=== PATIENT | male | born 1945 | race Hispanic/Latino ===

== ENCOUNTER 2017-06-08 19:18 | Inpatient (IN) | payer MEDICARE, OTHER ==
[2017-06-08 20:58] LABS: #Eosinphils 0.1 thou/uL (0.0-0.7); #Monocytes 0.8 thou/uL (0.11-0.59); #Neutrophils 6.5 thou/uL (1.40-6.50); %Basophils 0.3 % (0.0-1.0); %Eosinophils 0.8 % (0.0-10.0); %Lymphocytes 11.4 % (21.0-51.0); %Monocytes 10.1 % (0.0-10.0); %Neutrophils 77.4 % (42.0-75.0); Hemoglobin 15.6 g/dL (14.0-18.0); Mean Corpuscular HGB CONC 34.2 g/dL (32.0-36.0); Mean Corpuscular Volume 96.4 fl (80.0-94.0); Mean Platelet Volume 8.2 fL (7.4-10.4); Platelet Count 281 thou/uL (130-400); RBC Distribution Width 13.4 % (11.5-14.5); Red Blood Cell (RBC) Count 4.74 mill/uL (4.70-6.10); White Blood Cell (WBC) Count 8.3 thou/uL (4.8-10.8)
[2017-06-08 21:16] LABS: ALT (SGPT) 22 U/L (8-55); AST (SGOT) 25 U/L (5-34); Albumin 4.8 g/dL (3.4-4.8); Alkaline Phosphatase 60 U/L (40-150); Anion Gap 16 mmol/L (10-20); BUN (Urea Nitrogen) 10 mg/dL (8.4-25.7); Bilirubin, Total 1.5 mg/dL (0.2-1.2); Calc. Creatinine Clearance 0 mL/min (70-130); Calcium 10.5 mg/dL (7.8-10.44); Carbon Dioxide 24 mmol/L (23-31); Chloride 107 mmol/L (98-107); Estimated GFR-MDRD Greater than 90; Globulin 2.9 g/dL (2.4-3.5); Glucose 116 mg/dL (80-115); Potassium 4.2 mmol/L (3.5-5.1); Protein, Total 7.7 g/dL (5.8-8.1); Sodium 143 mmol/L (136-145)
[2017-06-08 21:38] LABS: CKMB 3.9 ng/mL (0-6.6); Troponin I 0.022 ng/mL (< 0.028)
[2017-06-08 21:45] LABS: Magnesium 2.3 mg/dL (1.6-2.6)
[2017-06-08] MEDS ORDERED: methylPREDNISolone Sod Succ/PF 125 MG/2 ML VIAL ONE (22:43)
[2017-06-09 03:32] VITALS: BMI 26.9
[2017-06-09] MEDS ORDERED: Ondansetron ODT 4 MG TAB SL PRN (03:33)
[2017-06-09] MEDS ORDERED: Ondansetron HCl/PF 4 MG/2 ML Vial IVP PRN ×2 (03:33→10:19)
[2017-06-09] MEDS ORDERED: Sodium Chloride 0.45% 1,000 ML IV SCH (03:45)
[2017-06-09] MEDS: predniSONE 20 MG TAB PO SCH ×2 (08:53→17:31)
[2017-06-09] MEDS ORDERED: Prevnar 13-Val Conj/PF 0.5 ML SYRINGE IM ONE (09:00)
[2017-06-09] MEDS ORDERED: FLU VACC TS2017-18 (>65YR) 0.5 ML SYRINGE IM ONE (09:00)
[2017-06-09] MEDS ORDERED: Senokot 8.6 MG TAB PO PRN (10:19)
[2017-06-09] MEDS ORDERED: Acetaminophen 325 MG TAB PO PRN (10:19)
[2017-06-09] MEDS ORDERED: Ondansetron ODT 4 MG TAB PO PRN (10:19)
[2017-06-09] MEDS ORDERED: hydrALAZINE 20 MG/ML VIAL SLOW IVP PRN (10:19)
[2017-06-09] MEDS ORDERED: azaTHIOprine 50 MG TAB PO SCH (11:00)
--- NOTE | 2017-06-09 14:55 | PDOC.EVN ---
Event Note - Event Note Event Note: Patient seen and examined. Note dictated. Full code. DPOA - self/family
--- NOTE | 2017-06-09 15:09 | HP ---
DATE OF ADMISSION: 06/09/2017 PRIMARY CARE PHYSICIAN: The patient is from out [facility]. REASON FOR ADMISSION/CHIEF COMPLAINT: Generalized weakness. HISTORY OF PRESENT ILLNESS: Patient is a 72-year-old male with myasthenia gravis, currently on azath ioprine presented to the emergency room with above complaints. Patient used to be on prednisone chris g with azathioprine in the past. Seven months ago, he discontinued prednisone. Over the last 2 days , he has also missed his azathioprine. Patient claims to have a lot of stress lately. Over the last five days, patient developed gradual worsening weakness that was generalized. He started using a ca ne since he was unable to walk. Over the last 2-3 days, he has fallen 3 times. His last fall was ye . He had generalized muscle weakness and had difficulty holding things. No double vision, bl urring of vision, facial asymmetry or focal weakness reported. No headache or seizures reported. No chest pain, palpitations, fever or chills reported. In the emergency room, initial vital signs showed temperature 98.1, respirations 18, pulse 89, blood pressure 188/103 with O2 saturation 97% on room air. He received 125 mg of Solu-Medrol for possible mild myasthenia flare. His EKG showed sinus rhythm without significant ST-T wave changes. PAST MEDICAL HISTORY: Myasthenia gravis, currently on immunosuppression. PAST SURGICAL HISTORY: 1. Gastric surgery, details are unavailable. 2. Cholecystectomy. ALLERGIES: No known drug allergies. CURRENT HOME MEDICATION: Azathioprine 50 mg b.i.d. SOCIAL HISTORY: He drinks 2-3 drinks of wine on a daily basis. No smoking or drug use. FAMILY HISTORY: Negative for premature coronary artery disease. REVIEW OF SYSTEMS: The following complete review of systems was negative, unless otherwise mentioned in the HPI or below: Constitutional: Weight loss or gain, ability to conduct usual activities. Skin: Rash, itching. Eyes: Double vision, pain. ENT/Mouth: Nose bleeding, neck stiffness, pain, tenderness. Cardiovascular: Palpitations, dyspnea on exertion, orthopnea. Respiratory: Shortness of breath, wheezing, cough, hemoptysis, fever or night sweats. Gastrointestinal: Poor appetite, abdominal pain, heartburn, nausea, vomiting, constipation, or diarr hea. Genitourinary: Urgency, frequency, dysuria, nocturia. Musculoskeletal: Pain, swelling. Neurologic/Psychiatric: Anxiety, depression. Allergy/Immunologic: Skin rash, bleeding tendency. PHYSICAL EXAMINATION: GENERAL: A 72-year-old male in no apparent distress. Feels symptomatically better after IV steroids in the emergency room. HEENT: Head is atraumatic, normocephalic. Sclerae anicteric. Moist mucous membranes. No oral lesi on. NECK: Supple, no JVD appreciated. No carotid bruit. LUNGS: Clear to auscultation bilaterally. No wheezing or rales. HEART: S1 and S2 present. Regular rate and rhythm. No murmurs, rubs or gallops appreciated. ABDOMEN: Soft, nontender, bowel sounds present. EXTREMITIES: No edema or calf tenderness. NEUROLOGIC: There is generalized weakness. Power was 5/5 in all extremities. There is a delay in h is weakness. Cranial nerves were normal. Sensation to touch was normal bilaterally. PSYCHIATRY: Alert, awake, oriented x3. SKIN: Warm and dry. LYMPH NODES: No palpable lymph nodes in the neck. PERIPHERAL VASCULAR: Radial pulses palpable bilaterally. MUSCULOSKELETAL: No joint swelling or tenderness. IMAGING DATA AND LABORATORY DATA: 1. EKG by my review as discussed above. 2. CBC showed WBC 8.3 with hemoglobin 15.6, hematocrit 45.7, and platelet count of 281. 3. Chemistries showed sodium 143, potassium 4.2, chloride 107, bicarbonate 24, BUN of 10, and creati nine 0.69. 4. Influenza testing was negative. IMPRESSION AND PLAN: 1. Generalized weakness, probably secondary to flare of myasthenia gravis. 2. History of myasthenia gravis. 3. Chronic alcoholism. 4. Abnormal liver function tests, probably secondary to alcohol use. 5. Macrocytosis rule out vitamin B12 deficiency. PLAN: The patient will be monitored on the medical floor. We will continue oral steroids at 1 mg/kg . Neurology will be consulted. Thiamine, folic acid, and multivitamins. Resume azathioprine. Rech az labs in a.m. Start him on multivitamins, thiamine and folic acid. We will check vitamin B12 in a.m. We will also get frequent vital capacity and NIF measurements. Plan of care was discussed with the patient in detail. He stated understanding.
[2017-06-09] MEDS: Famotidine 20 MG TAB PO SCH (20:01)
[2017-06-09] MEDS: Docusate 100 MG CAP PO SCH (20:01)
[2017-06-09] MEDS: azaTHIOprine 50 MG TAB PO SCH (20:02)
--- NOTE | 2017-06-09 23:22 | CON ---
DATE OF CONSULTATION: 06/09/2017 CONSULTING PHYSICIAN: Hospitalist Service. IMPRESSION: Myasthenia exacerbation secondary to discontinuation of steroids. PLAN: 1. Continue Imuran 50 mg twice a day. 2. Prednisone 40 mg per day. 3. Mestinon 60 mg q.6 hours. 4. Discharge for outpatient management once his strength is good enough for independent mobility. HISTORY OF PRESENT ILLNESS: Mr. Winston Lee, he is a 72-year-old gentleman who was diagnosed wi th myasthenia gravis when he was living in [place]. He was living in [place] most recently and wa s followed by neurologist until recently. His neurologist has . He had taken Mestinon in the past. He was weaned off of this. He was on steroids which even were gradually weaned down to a bout 12.5 mg per day along with his Imuran. He decided 8 months ago to discontinue prednisone and wa s doing reasonably well until about 3 days ago. He started getting much weaker in his legs and he st arted falling. He also noted weakness in his right arm more so than the left. He has not had any re current double vision or ptosis. He was admitted and started on prednisone. I was called to give a neurologic opinion. He has not had a thymectomy in the past. PAST MEDICAL HISTORY: Otherwise, negative. ALLERGIES: None reported. SOCIAL HISTORY: He is a businessman and continues to live independently. FAMILY HISTORY: Noncontributory. REVIEW OF SYSTEMS: Otherwise, negative. PHYSICAL EXAMINATION: GENERAL: He is a healthy-appearing elderly gentleman in no distress. VITAL SIGNS: Have been stable. He is afebrile. HEENT: Unremarkable. NEUROLOGIC: He is alert and appropriate. Speech is fluent and clear. Cranial nerves are intact oth er than neck flexion weakness. Motor exam showed a 4-/5 of upper extremity strength. His lower extr emities were a bit stronger in the range of 4+/5. Sensation was normal. No abnormal movements were seen. LABORATORY STUDIES: Reviewed. SUMMARY: A 72-year-old gentleman with history of myasthenia who is experiencing a relapse. I would be happy to follow him as an outpatient once we stabilize the situation.
[2017-06-10] MEDS: Pyridostigmine Bromide IR 60 MG TAB PO SCH ×4 (02:24→20:17)
[2017-06-10 04:57] LABS: ALT (SGPT) 16 U/L (8-55); AST (SGOT) 15 U/L (5-34); Albumin 3.9 g/dL (3.4-4.8); Alkaline Phosphatase 54 U/L (40-150); Anion Gap 12 mmol/L (10-20); BUN (Urea Nitrogen) 15 mg/dL (8.4-25.7); Bilirubin, Total 0.6 mg/dL (0.2-1.2); Calc. Creatinine Clearance 110 mL/min (70-130); Calcium 9.4 mg/dL (7.8-10.44); Carbon Dioxide 25 mmol/L (23-31); Chloride 107 mmol/L (98-107); Estimated GFR-MDRD Greater than 90; Globulin 2.4 g/dL (2.4-3.5); Glucose 248 mg/dL (80-115); Potassium 3.6 mmol/L (3.5-5.1); Protein, Total 6.3 g/dL (5.8-8.1); Sodium 140 mmol/L (136-145)
[2017-06-10 06:46] LABS: Folate (Folic Acid) 7.7 ng/mL (7.0-31.4)
[2017-06-10] MEDS: azaTHIOprine 50 MG TAB PO SCH ×2 (08:24→20:17)
[2017-06-10] MEDS: Folic Acid 1 MG TAB PO SCH (08:24)
[2017-06-10] MEDS: Famotidine 20 MG TAB PO SCH ×2 (08:24→20:17)
[2017-06-10] MEDS: Multivit, Therapeutic 1 TAB PO SCH (08:24)
[2017-06-10] MEDS: Docusate 100 MG CAP PO SCH ×2 (08:24→20:17)
[2017-06-10] MEDS: predniSONE 20 MG TAB PO SCH (08:24)
[2017-06-10] MEDS: Calcium Carbonate + Vit D 1 TAB PO SCH (16:38)
--- NOTE | 2017-06-10 18:23 | PDOC.PN ---
- Subjective Encounter Start Date: 06/10/17 Encounter Start Time: 11:00 Patient seen and examined. No new complaints. Overall strength improving. No overnight events. No new focal deficits. - Objective Resuscitation Status: Resuscitation Status FULL:Full Resuscitation MAR Reviewed: Yes Vital Signs & Weight: Vital Signs (12 hours) Temp Pulse Resp BP BP Pulse Ox 06/10/17 16:00 98.3 F 66 16 166/92 H 95 06/10/17 11:33 98.1 F 65 16 164/101 H 95 06/10/17 08:00 97.9 F 76 16 125/67 97 Weight Weight 172 lb 1.6 oz I&O: 06/09/17 06/10/17 06/11/17 06:59 06:59 06:59 Intake Total 705 1240 Output Total 600 Balance 705 640 Result Diagrams: 06/08/17 20:37 06/10/17 03:41 Phys Exam - Physical Examination Constitutional: NAD Respiratory: no wheezing, no rales, no rhonchi Cardiovascular: RRR, no rub Gastrointestinal: soft, non-tender, positive bowel sounds Musculoskeletal: no edema Neurological: non-focal, normal sensation, moves all 4 limbs Power 4-5/5 in all ext Psychiatric: A&O x 3 Dx/Plan - Plan DVT proph w/SCDs IMPRESSION AND PLAN: 1. Myasthenia gravis exacerbation 2. History of myasthenia gravis. 3. Chronic alcoholism. 4. Abnormal liver function tests, probably secondary to alcohol use. 5. Macrocytosis PLAN: * Neuro input appreciated * Change Prednisone to 40 mg daily per Neuro recom. * Cont Imuran and Pyridostigmine * Cont to monitor Review of Systems - Review of Systems Respiratory: negative: Cough, Dry, Shortness of Breath, Hemoptysis, SOB with Excertion, Pleuritic Pain, Sputum, Wheezing Cardiovascular: negative: chest pain, palpitations, orthopnea, paroxysmal nocturnal dyspnea, edema, light headedness - Medications/Allergies Allergies/Adverse Reactions: Allergies Allergy/AdvReac Type Severity Reaction Status Date / Time No Known Allergies Allergy Verified 06/09/17 03:36 Medications: Current Medications Acetaminophen (Tylenol) 650 mg PO Q4H PRN PRN Reason: Headache/Fever or Pain Azathioprine (Imuran) 50 mg PO BID [facility] Last Admin: 06/10/17 08:24 Dose: 50 mg Calcium/Vitamin D (Caltrate 600 + Vit D) 1 tab PO BID-[facility] Last Admin: 06/10/17 16:38 Dose: 1 tab Docusate Sodium (Colace) 100 mg PO BID [facility] Last Admin: 06/10/17 08:24 Dose: 100 mg Famotidine (Pepcid) 20 mg PO BID [facility] Last Admin: 06/10/17 08:24 Dose: 20 mg Folic Acid (Folvite) 1 mg PO DAILY [facility] Last Admin: 06/10/17 08:24 Dose: 1 mg Hydralazine HCl (Apresoline) 10 mg SLOW IVP Q4H PRN PRN Reason: SBP Greater Than 180 Multivitamins (Theragran) 1 tab PO DAILY [facility] Last Admin: 06/10/17 08:24 Dose: 1 tab Ondansetron HCl (Zofran Odt) 4 mg PO Q6H PRN PRN Reason: Nausea/Vomiting Ondansetron HCl (Zofran) 4 mg IVP Q6H PRN PRN Reason: Nausea/Vomiting Prednisone (Prednisone) 40 mg PO QAM-[facility] Last Admin: 06/10/17 08:24 Dose: 40 mg Pyridostigmine [place] (Mestinon) 60 mg PO 0200,0800,1400,2000 [facility] Last Admin: 06/10/17 13:28 Dose: 60 mg Senna (Senokot) 2 tab PO HSPRN PRN PRN Reason: Constipation Thiamine HCl (Thiamine) 100 mg PO DAILY [facility] Last Admin: 06/10/17 08:24 Dose: 100 mg
[2017-06-11] MEDS: Pyridostigmine Bromide IR 60 MG TAB PO SCH ×4 (02:13→19:52)
[2017-06-11 04:33] LABS: #Lymphocytes 1.2 thou/uL (1.20-3.40); #Monocytes 0.5 thou/uL (0.11-0.59); #Neutrophils 6.2 thou/uL (1.40-6.50); %Basophils 0.3 % (0.0-1.0); %Eosinophils 0.2 % (0.0-10.0); %Lymphocytes 15.4 % (21.0-51.0); %Monocytes 6.6 % (0.0-10.0); %Neutrophils 77.4 % (42.0-75.0); Mean Corpuscular HGB CONC 34.5 g/dL (32.0-36.0); Mean Corpuscular Hemoglobin 33.6 pg (27.0-31.0); Mean Corpuscular Volume 97.2 fl (80.0-94.0); Mean Platelet Volume 8.9 fL (7.4-10.4); Platelet Count 226 thou/uL (130-400); RBC Distribution Width 13.7 % (11.5-14.5); Red Blood Cell (RBC) Count 3.88 mill/uL (4.70-6.10)
[2017-06-11] MEDS: azaTHIOprine 50 MG TAB PO SCH ×2 (08:23→19:52)
[2017-06-11] MEDS: predniSONE 20 MG TAB PO SCH (08:23)
[2017-06-11] MEDS: Docusate 100 MG CAP PO SCH ×2 (08:23→19:52)
[2017-06-11] MEDS: Famotidine 20 MG TAB PO SCH ×2 (08:23→19:52)
[2017-06-11] MEDS: Multivit, Therapeutic 1 TAB PO SCH (08:23)
[2017-06-11] MEDS: Calcium Carbonate + Vit D 1 TAB PO SCH ×2 (08:23→16:47)
[2017-06-11] MEDS: Folic Acid 1 MG TAB PO SCH (08:23)
--- NOTE | 2017-06-11 14:00 | PDOC.PN ---
- Subjective Encounter Start Date: 06/11/17 Encounter Start Time: 13:00 Patient seen and examined. No new complaints. No overnight events. No new focal weakness. Still has some gen weakness. - Objective Resuscitation Status: Resuscitation Status FULL:Full Resuscitation MAR Reviewed: Yes Vital Signs & Weight: Vital Signs (12 hours) Temp Pulse Resp BP Pulse Ox 06/11/17 08:00 97.7 F 57 L 16 06/11/17 07:28 97.7 F 57 L 16 151/81 H 96 06/11/17 03:50 97.8 F 53 L 16 168/82 H 96 Weight Weight 172 lb 1.6 oz I&O: 06/10/17 06/11/17 06/12/17 06:59 06:59 06:59 Intake Total 1240 Output Total 600 Balance 640 Result Diagrams: 06/11/17 03:26 06/10/17 03:41 Phys Exam - Physical Examination Constitutional: NAD Cardiovascular: RRR, no rub Gastrointestinal: soft, non-tender, positive bowel sounds Musculoskeletal: no edema Neurological: non-focal, moves all 4 limbs Psychiatric: A&O x 3 Dx/Plan - Plan PT/OT, DVT proph w/SCDs IMPRESSION AND PLAN: 1. Myasthenia gravis exacerbation - improving 2. History of myasthenia gravis. 3. Chronic alcoholism. 4. Abnormal liver function tests, probably secondary to alcohol use. 5. Macrocytosis PLAN: * Cont Prednisone at 40 mg daily per Neuro recom. * Cont Imuran and Pyridostigmine * Cont to monitor * Check HbA1c * Patient still feels gen weak and does not feel comfortable going home - Also is at high risk of falls - Will probably dc in AM if stable * cont PT Review of Systems - Review of Systems Respiratory: negative: Cough, Dry, Shortness of Breath, Hemoptysis, SOB with Excertion, Pleuritic Pain, Sputum, Wheezing Cardiovascular: negative: chest pain, palpitations, orthopnea, paroxysmal nocturnal dyspnea, edema, light headedness - Medications/Allergies Allergies/Adverse Reactions: Allergies Allergy/AdvReac Type Severity Reaction Status Date / Time No Known Allergies Allergy Verified 06/09/17 03:36 Medications: Current Medications Acetaminophen (Tylenol) 650 mg PO Q4H PRN PRN Reason: Headache/Fever or Pain Azathioprine (Imuran) 50 mg PO BID [facility] Last Admin: 06/11/17 08:23 Dose: 50 mg Calcium/Vitamin D (Caltrate 600 + Vit D) 1 tab PO BID-[facility] Last Admin: 06/11/17 08:23 Dose: 1 tab Cyanocobalamin (Vitamin B-12) 1,000 mcg PO DAILY [facility] Docusate Sodium (Colace) 100 mg PO BID [facility] Last Admin: 06/11/17 08:23 Dose: 100 mg Famotidine (Pepcid) 20 mg PO BID [facility] Last Admin: 06/11/17 08:23 Dose: 20 mg Folic Acid (Folvite) 1 mg PO DAILY [facility] Last Admin: 06/11/17 08:23 Dose: 1 mg Hydralazine HCl (Apresoline) 10 mg SLOW IVP Q4H PRN PRN Reason: SBP Greater Than 180 Multivitamins (Theragran) 1 tab PO DAILY [facility] Last Admin: 06/11/17 08:23 Dose: 1 tab Ondansetron HCl (Zofran Odt) 4 mg PO Q6H PRN PRN Reason: Nausea/Vomiting Ondansetron HCl (Zofran) 4 mg IVP Q6H PRN PRN Reason: Nausea/Vomiting Prednisone (Prednisone) 40 mg PO QAM-[facility] Last Admin: 06/11/17 08:23 Dose: 40 mg Pyridostigmine [place] (Mestinon) 60 mg PO 0200,0800,1400,2000 [facility] Last Admin: 06/11/17 13:41 Dose: 60 mg Senna (Senokot) 2 tab PO HSPRN PRN PRN Reason: Constipation Thiamine HCl (Thiamine) 100 mg PO DAILY [facility] Last Admin: 06/11/17 08:23 Dose: 100 mg
[2017-06-11 14:10] LABS: Hemoglobin A1c 5.2 % (4.0-6.0)
[2017-06-12 00:40] VITALS: TEMP 98
[2017-06-12] MEDS: Pyridostigmine Bromide IR 60 MG TAB PO SCH ×2 (02:34→08:01)
[2017-06-12] MEDS: Folic Acid 1 MG TAB PO SCH ×2 (07:59→08:00)
[2017-06-12] MEDS: Calcium Carbonate + Vit D 1 TAB PO SCH (08:02)
[2017-06-12] MEDS: predniSONE 20 MG TAB PO SCH (08:02)
[2017-06-12] MEDS: Famotidine 20 MG TAB PO SCH (08:02)
[2017-06-12] MEDS: azaTHIOprine 50 MG TAB PO SCH (08:02)
[2017-06-12] MEDS: Multivit, Therapeutic 1 TAB PO SCH (08:02)
[2017-06-12] MEDS: Docusate 100 MG CAP PO SCH (08:02)
[2017-06-12 08:08] VITALS: BP 180/72
[2017-06-12] MEDS ORDERED: Cyanocobalamin (Vitamin B-12) 1,000 MCG TAB PO SCH (09:00)
--- NOTE | 2017-06-12 11:14 | PDOC.PN ---
- Subjective Encounter Start Date: 06/12/17 Encounter Start Time: 07:00 -: old records requested/rev Patient seen and examined. No new complaints. No overnight events - Objective Resuscitation Status: Resuscitation Status FULL:Full Resuscitation MAR Reviewed: Yes Vital Signs & Weight: Vital Signs (12 hours) Temp Pulse Resp BP Pulse Ox 06/12/17 08:00 98.0 F 60 16 180/72 H 98 06/12/17 07:53 98.0 F 60 16 196/96 H 98 06/12/17 00:39 98.0 F 55 L 20 164/79 H 98 Weight Weight 172 lb 1.6 oz Result Diagrams: 06/11/17 03:26 06/10/17 03:41 Additional Labs: Accuchecks 06/11/17 20:28 POC Glucose 192 H Phys Exam - Physical Examination Constitutional: NAD HEENT: PERRLA, moist MMs, sclera anicteric Neck: no JVD, supple Respiratory: no wheezing, no rales, no rhonchi Cardiovascular: RRR, no significant murmur, no rub Gastrointestinal: soft, non-tender, no distention, positive bowel sounds Musculoskeletal: no edema, pulses present Neurological: non-focal, normal sensation, moves all 4 limbs Psychiatric: normal affect, A&O x 3 Skin: no rash, normal turgor Dx/Plan (1) Myasthenia gravis with exacerbation Code(s): G70.01 - MYASTHENIA GRAVIS WITH (ACUTE) EXACERBATION Status: Acute (2) Abnormal LFTs Code(s): R79.89 - OTHER SPECIFIED ABNORMAL FINDINGS OF BLOOD CHEMISTRY Status : Chronic (3) Alcoholism Code(s): F10.20 - ALCOHOL DEPENDENCE, UNCOMPLICATED Status: Chronic (4) Macrocytosis Code(s): D75.89 - OTHER SPECIFIED DISEASES OF BLOOD AND BLOOD-FORMING ORGANS Status: Chronic - Plan cont current plan of care * medication reviewed as below * symptomatic treatment. * see discharge summery * add amlodipine Review of Systems - Review of Systems ENT: negative: Ear Pain, Ear Discharge, Nose Pain, Nose Discharge, Nose Congestion, Mouth Pain, Mouth Swelling, Throat Pain, Throat Swelling, Other Respiratory: negative: Cough, Dry, Shortness of Breath, Hemoptysis, SOB with Excertion, Pleuritic Pain, Sputum, Wheezing Cardiovascular: negative: chest pain, palpitations, orthopnea, paroxysmal nocturnal dyspnea, edema, light headedness, other Gastrointestinal: negative: Nausea, Vomiting, Abdominal Pain, Diarrhea, Constipation, Melena, Hematochezia, Other Genitourinary: negative: Dysuria, Frequency, Incontinence, Hematuria, Retention , Other Musculoskeletal: negative: Neck Pain, Shoulder Pain, Arm Pain, Back Pain, Hand Pain, Leg Pain, Foot Pain, Other Skin: negative: Rash, Lesions, Maximilian, Bruising, Other - Medications/Allergies Allergies/Adverse Reactions: Allergies Allergy/AdvReac Type Severity Reaction Status Date / Time No Known Allergies Allergy Verified 06/09/17 03:36 Medications: Current Medications Acetaminophen (Tylenol) 650 mg PO Q4H PRN PRN Reason: Headache/Fever or Pain Amlodipine Besylate (Norvasc) 10 mg PO [facility] Azathioprine (Imuran) 50 mg PO BID [facility] Last Admin: 06/12/17 08:02 Dose: 50 mg Calcium/Vitamin D (Caltrate 600 + Vit D) 1 tab PO BID-[facility] Last Admin: 06/12/17 08:02 Dose: 1 tab Cyanocobalamin (Vitamin B-12) 1,000 mcg PO DAILY [facility] Last Admin: 06/12/17 08:02 Dose: 1,000 mcg Docusate Sodium (Colace) 100 mg PO BID [facility] Last Admin: 06/12/17 08:02 Dose: 100 mg Famotidine (Pepcid) 20 mg PO BID [facility] Last Admin: 06/12/17 08:02 Dose: 20 mg Folic Acid (Folvite) 1 mg PO DAILY [facility] Last Admin: 06/12/17 08:00 Dose: 1 mg Hydralazine HCl (Apresoline) 10 mg SLOW IVP Q4H PRN PRN Reason: SBP Greater Than 180 Multivitamins (Theragran) 1 tab PO DAILY [facility] Last Admin: 06/12/17 08:02 Dose: 1 tab Ondansetron HCl (Zofran Odt) 4 mg PO Q6H PRN PRN Reason: Nausea/Vomiting Ondansetron HCl (Zofran) 4 mg IVP Q6H PRN PRN Reason: Nausea/Vomiting Prednisone (Prednisone) 40 mg PO QAM-[facility] Last Admin: 06/12/17 08:02 Dose: 40 mg Pyridostigmine [place] (Mestinon) 60 mg PO 0200,0800,1400,1999 [facility] Last Admin: 06/12/17 08:01 Dose: 60 mg Senna (Senokot) 2 tab PO HSPRN PRN PRN Reason: Constipation Thiamine HCl (Thiamine) 100 mg PO DAILY [facility] Last Admin: 06/12/17 08:02 Dose: 100 mg
[2017-06-12] MEDS ORDERED: Amlodipine 10 MG TAB PO SCH (11:15)
--- NOTE | 2017-06-12 13:16 | DIS ---
DATE OF ADMISSION: 06/09/2017 DATE OF DISCHARGE: 06/12/2017 PRIMARY CARE PHYSICIAN: [facility] call admission. DISCHARGE DISPOSITION: Home. PRIMARY DISCHARGE DIAGNOSES: Myasthenia gravis exacerbation and new onset hypertension. SECONDARY DISCHARGE DIAGNOSES: Alcoholism, macrocytosis, abnormal LFT. PRIMARY PROCEDURE/OPERATION: None. RADIOLOGICAL INVESTIGATION: None. SIGNIFICANT LABORATORY DATA: Hemoglobin 13.0, creatinine 0.69. Electrolytes normal. LFT normal. B 12 and folate normal. Influenza negative. DISCHARGE MEDICATIONS: Norvasc 10 mg p.o. daily, azathioprine 50 mg p.o. b.i.d., vitamin B12 1000 mc g p.o. daily, Pepcid 20 mg p.o. b.i.d., folic acid 1 mg p.o. daily, multivitamin 1 tablet p.o. daily, prednisone 40 mg p.o. daily, Mestinon 60 mg p.o. q.i.d., and thiamine 100 mg p.o. daily. CONTRAINDICATIONS: None. CODE STATUS: FULL CODE. INPATIENT QUALITY ASSURANCE QA LAB TECHNICIAN: Dr. Batool Diaz, neurologist, was consulted while in hospital. TEST RESULTS PENDING ON DISCHARGE: None. ALLERGIES: No known drug allergy. DISCHARGE PLAN: Post hospital, patient is advised to follow up with Dr. Batool Diaz in 1 week. HOSPITAL COURSE: A 72-year-old male who was admitted by Dr. Alec Martínez. Please see his H&P for fur ther details. The patient was admitted with weakness. Patient was having myasthenia gravis exacerba tion. Patient stopped taking steroid and that might have precipitated myasthenia gravis crisis. Shanta greenberg was medically treated at medical floor with steroid Mestinon with significant improvement. Neur ologist, Dr. Batool Diaz was following while in hospital and he cleared him for discharge as well. During this admission, we noticed that his blood pressure was going up and that is why we started aml odipine therapy. Rest of medications is prescribed as above. All new medication prescriptions sent to his pharmacy. PHYSICAL EXAMINATION: Patient is seen and examined at bedside today. Please see my progress note fr om today for further details.
== END 2017-06-12 12:00 | disposition home or self-care (01) | DRG 57 ==
LOC: ERS 19:18 → T4-A 06-09 01:57
PROVIDERS: ADMIT Family Medicine; ATTEND Family Medicine
DX: G70.01 Myasthenia gravis with (acute) exacerbation (principal); D75.89 Other specified diseases of blood and blood-forming organs; F10.20 Alcohol dependence, uncomplicated; I10 Essential (primary) hypertension; R79.89 Other specified abnormal findings of blood chemistry
CPT/HCPCS: 36415; 36416; 80053; 82553; 82607; 82746; 83036; 83690; 83735; 83880; 84484; 85025; 93005; 94150; 94760; 96374; G8978-GP-CL; G8979-GP-CI; G8987-GO-CI; J2930; J7500; J7506